=== PATIENT | male | born 1955 | race Two or more races ===

== ENCOUNTER 2024-12-05 04:45 | Emergency (ER) | payer MEDICAID ==
[~2024-12-05] VITALS: Ht 162.6 cm; Wt 75.3 kg
[2024-12-05 05:52] VITALS: TEMP 98.3
[2024-12-05] MEDS ORDERED: CEPH-570 PO (07:15)
[2024-12-05] MEDS ORDERED: IBUP-1955 PO (07:15)
[2024-12-05] MEDS: TDAP [DIPH/PERTUSSIS/TET] 0.5 ML VIAL IM ONE (07:23)
[2024-12-05] MEDS ORDERED: KETOROLAC TROMETHAMINE 15 MG/ML VIAL ONE (07:24)
[2024-12-05] MEDS: KETOROLAC TROMETHAMINE 15 MG/ML VIAL IM ONE (07:29)
[2024-12-05 07:40] VITALS: BP 124/83; O2SAT 99
== END 2024-12-05 07:40 | disposition home or self-care (01) ==
LOC: ER 04:51
DX: S61.431A Puncture wound without foreign body of right hand, initial encounter (principal); W45.0XXA Nail entering through skin, initial encounter; Y93.89 Activity, other specified; Y92.89 Other specified places as the place of occurrence of the external cause; Y99.8 Other external cause status
CPT/HCPCS: 99283; 96372; 73130; J1885